=== PATIENT | female | born 1965 ===

== ENCOUNTER 2017-07-31 19:06 | Emergency (ER) | payer MEDICAID, OTHER ==
[2017-07-31 19:40] VITALS: BP 146/90; PULSE 93; RESP 16; TEMP 98; O2SAT 96
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
== END 2017-07-31 21:29 | disposition home or self-care (01) ==
LOC: H.ER 19:06
DX: S09.90XA Unspecified injury of head, initial encounter (principal); V43.62XA Car passenger injured in collision with other type car in traffic accident, initial encounter; Y92.410 Unspecified street and highway as the place of occurrence of the external cause; E78.5 Hyperlipidemia, unspecified